=== PATIENT | male | born 2000 | race Two or more races ===

== ENCOUNTER 2021-06-30 16:28 | Emergency (ER) | payer MEDICAID, OTHER ==
[~2021-06-30] VITALS: Ht 172.7 cm; Wt 83.9 kg
[2021-06-30 16:33] VITALS: BP 142/89
== END 2021-06-30 17:29 | disposition left against medical advice (07) ==
LOC: EDBD 16:28 → ER 16:28
DX: T39.1X1A Poisoning by 4-Aminophenol derivatives, accidental (unintentional), initial encounter (principal); R41.82 Altered mental status, unspecified; F17.210 Nicotine dependence, cigarettes, uncomplicated; F19.10 Other psychoactive substance abuse, uncomplicated

== ENCOUNTER 2022-11-13 23:12 | Emergency (ER) | payer MEDICAID ==
[~2022-11-13] VITALS: Ht 172.7 cm; Wt 81.0 kg
[2022-11-14] MEDS ORDERED: IBUPROFEN 800 MG TAB PO ONE
[2022-11-14 00:23] VITALS: BP 110/61; PULSE 78; RESP 16; TEMP 98.1; O2SAT 98
[2022-11-14] MEDS ORDERED: TRAM50TA2 PO (00:24)
[2022-11-14] MEDS ORDERED: CLIN300C70 PO (00:24)
[2022-11-14] MEDS ORDERED: KETOROLAC TROMETH 60MG/2ML VIAL IM ONE (00:30)
[2022-11-14] MEDS ORDERED: PENICILLIN G POTASSIUM 2,500,000 UNITS in D5W 5% 50 ML IV ONE (01:15)
[2022-11-14] MEDS ORDERED: PENICILLIN G POT 5MILLION UNIT VIAL ONE (01:33)
[2022-11-14] MEDS ORDERED: STERILE WATER 10 ML ONE (01:34)
== END 2022-11-14 03:52 | disposition home or self-care (01) ==
LOC: ER 23:21
DX: S02.652A Fracture of angle of left mandible, initial encounter for closed fracture (principal); F17.210 Nicotine dependence, cigarettes, uncomplicated; Y04.2XXA Assault by strike against or bumped into by another person, initial encounter; Y93.89 Activity, other specified; Y92.832 Beach as the place of occurrence of the external cause; Y99.8 Other external cause status
CPT/HCPCS: 70486; 96365; 96372; 99285; J1885; J2540; J7060